=== PATIENT | female | born 1940 | race Caucasian/White ===

== ENCOUNTER 2016-09-30 23:46 | Emergency (ER) | payer MEDICARE, OTHER ==
--- NOTE | 2016-10-01 01:13 | ED Physician Chart ---
Chief Complaint/HPI - Patient Information Date Seen:: 10/01/16 Time Seen:: 00:20 Chief Complaint:: ALTERED MENTAL STATUS History of Present Illness:: THIS IS A 76 YO FEMALE WITH A KNOWN PSYCH HISTORY AND WAS RECENTLY WORKED UP AND TREATED BY [facility]. THE PATIENTS DAUGHTER WANTS PLACE THIS PATIENT IN THIS HOSPITAL PSYCH [facility] FOR TREATMENT. Allergies:: Allergies Allergy/AdvReac Type Severity Reaction Status Date / Time aspirin Allergy Verified 10/01/16 00:25 morphine Allergy Verified 10/01/16 00:25 Penicillins [PCN] Allergy Verified 10/01/16 00:25 Vitals:: Vital Signs - 8 hr 10/01/16 00:00 Temp 98.2 F HR 93 RR 18 BP 151/59 O2 Sat % 95 Historian:: Family Member Review:: Nurse's Note Reviewed Review of Systems - Review of Systems General/Constitutional: No fever, No chills, No weight loss, No weakness, No diaphoresis, No edema, No loss of appetite Skin: No skin lesions, No rash, No bruising, Other (PT DAUGHTER GAVE ALL OF THE REVIEW OF SYSTEMS) Head: No headache, No light-headedness Eyes: No loss of vision, No pain, No diplopia ENT: No earache, No nasal drainage, No sore throat, No tinnitus Neck: No neck pain, No swelling, No thyromegaly, No stiffness, No mass noted Cardio Vascular: No chest pain, No palpitations, No PND, No orthopnea, No edema Pulmonary: No SOB, No cough, No sputum, No wheezing GI: No nausea, No vomiting, No diarrhea, No pain, No melena, No hematochezia, No constipation, No hematemesis G/U: No dysuria, No frequency, No hematuria Musculoskeletal: No bone or joint pain, No back pain, No muscle pain Endocrine: No polyuria, No polydipsia Psychiatric: Prior psych history, Depression, Anxiety, No suicidal ideation Hematopoietic: No bruising, No lymphadenopathy Allergic/Immuno: No urticaria, No angioedema Neurological: No syncope, No focal symptoms, No weakness, No paresthesia, No headache, No seizure, No dizziness, No confusion, No vertigo Past Medical History - Past Medical History Obtainable: Yes Past Medical History: HTN, Asthma/COPD, Arthritis, Dementia Family History: None Social History: Smoker, Non Smoker, Illicit Drug Use Family Medical History - Family Member Mother History Unknown: Yes Physical Exam - Physical Examination General/Constitutional: Awake, Well-developed, well-nourished, Alert, No distress, GCS 15, Non-toxic appearing, Ambulatory Head: Atraumatic Eyes: Lids, conjuctiva normal, PERRL, EOMI Skin: Nl inspection, No rash, No skin lesions, No ecchymosis, Well hydrated, No lymphadenopathy ENMT: External ears, nose nl, Nasal exam nl, Lips, teeth, gums nl Neck: Nontender, Full ROM w/o pain, No JVD, No nuchal rigidity, No bruit, No mass, No stridor Respiratory: Nl effort/Exclusion, Clear to Auscultation, No Wheeze/Rhonchi/Rales Cardio Vascular: RRR, No murmur, gallop, rubs, NL S1 S2 GI: No tenderness/rebounding/guarding, No organomegaly, No hernia, Normal BS's, Nondistended, No mass/bruits, No McBurney tenderness : No CVA tenderness Extremities: No tenderness or effusion, Full ROM, normal strength in all extremities, No edema, Normal digits & nails Neuro/Psych: Alert/oriented, DTR's symmetric, Normal sensory exam, Normal motor strength, Normal gait, No focal deficits Other Neuro/Psych comments:: THE PATIENT'S MOOD AND THOUGHT PROCESS IS OFF TRACK Misc: normal gait, Normal back, No paraspinal tenderness Labs/Radiology/EKG Results - Lab Results Results: RESULTS REVIEWED FOR THE LAST THREE DAYS AND SO NOTED FROM [facility]. ED Septic Shock - . Is Septic Shock (SBP<90, OR Lactate>4 mmol\L) present?: No - <6hrs of presentation: Vital Signs: Vital Signs - 8 hr 10/01/16 00:00 Temp 98.2 F HR 93 RR 18 BP 151/59 O2 Sat % 95 Reassessment (Disposition) - Diagnosis Diagnosis:: PSYCHOSIS - Aftercare/Follow up Instructions Aftercare/Follow-Up Instructions:: Counseled pt regarding lab results/diagnosis & need follow up, Refer to Discharge Instructions, Counseled pt & family regarding lab results/diagnosis & need follow up - Patient Disposition Discharge/Transfer:: Home Condition at Disposition:: Unchanged ED Discharge Plan - Patient Disposition Admit/Discharge/Transfer: PT DISCHARGED HOME Condition at Disposition: Unchanged Additional Instructions: I EXPLAINED TO THE DAUGHTER HOW THE PATIENT SHOULD BE CARED FOR WHILE WAITING ON A PSYCH BED.
== END 2016-10-01 01:20 | disposition home or self-care (01) ==
LOC: ER 23:46
DX: F29 Unspecified psychosis not due to a substance or known physiological condition (principal); I10 Essential (primary) hypertension; J45.909 Unspecified asthma, uncomplicated; J44.9 Chronic obstructive pulmonary disease, unspecified; F03.90 Unspecified dementia, unspecified severity, without behavioral disturbance, psychotic disturbance, mood disturbance, and anxiety; F17.200 Nicotine dependence, unspecified, uncomplicated; Z88.0 Allergy status to penicillin; Z88.6 Allergy status to analgesic agent
CPT/HCPCS: Z7502